=== PATIENT | female | born 1960 | race Two or more races ===

== ENCOUNTER 2017-07-12 10:01 | Outpatient (CLI) | payer BC, OTHER | END 2017-07-12 23:59 | disposition home or self-care (01) | LOC: US 10:01 | PROVIDERS: ATTEND Family Medicine | DX: E07.89 Other specified disorders of thyroid (principal) ==

== ENCOUNTER 2017-08-30 12:52 | Outpatient (CLI) | payer BC, OTHER | END 2017-08-30 23:59 | disposition home or self-care (01) | LOC: RAD 12:52 | PROVIDERS: ATTEND Family Medicine | DX: R76.11 Nonspecific reaction to tuberculin skin test without active tuberculosis (principal) | CPT/HCPCS: 71045 ==

== ENCOUNTER 2019-05-01 08:45 | Emergency (ER) | payer BC, OTHER ==
[~2019-05-01] VITALS: Ht 157.5 cm; Wt 77.1 kg
--- NOTE | 2019-05-01 08:50 | NUR ---
at bedside to examine patient.
[2019-05-01] MEDS ORDERED: KETOROLAC TROMETHAMINE 60 MG INJ IM ONE ×2 (09:00→09:09)
--- NOTE | 2019-05-01 09:32 | NUR ---
pt was d/c'd to home after dr Valdivia evaluation. d/c instructions given to the pt.
[2019-05-01 09:33] VITALS: BP 141/73
== END 2019-05-01 09:33 | disposition home or self-care (01) ==
LOC: ER 08:47
DX: G43.909 Migraine, unspecified, not intractable, without status migrainosus (principal)
CPT/HCPCS: 96372; 99283; J1885; A4663

== ENCOUNTER 2022-06-28 06:41 | Outpatient (CLI) | payer BC, OTHER ==
[2022-06-28 07:19] LABS: HEMATOCRIT 39.2 % (31.2-41.9); MEAN CORPUSCULAR HEMOGLOBIN 29.1 uug (24.7-32.8); MEAN CORPUSCULAR VOLUME 88.4 fL (75.5-95.3); PLATELET COUNT (AUTO) 398 K/uL (179-408)
[2022-06-28 08:31] LABS: IRON, SERUM 66 ug/dL (50-175)
[2022-06-28 08:38] LABS: ALANINE AMINOTRANSFERASE 28 U/L (14-59); ALKALINE PHOSPHATASE 210 U/L (50-136); ASPARTATE AMINOTRANSFERASE 27 U/L (15-37); BILIRUBIN,TOTAL 0.5 mg/dL (0.2-1.0); CARBON DIOXIDE 28 mmol/L (21-32); CHLORIDE 104 mmol/L (98-107); CREATININE 0.5 mg/dL (0.6-1.3); GLUCOSE 105 mg/dL (74-106); POTASSIUM 3.6 mmol/L (3.5-5.1); TOTAL PROTEIN, SERUM 7.8 g/dL (6.4-8.2); UREA NITROGEN, BLOOD 11 mg/dL (7-18)
[2022-06-28 09:14] LABS: *BILIRUBIN,URIN NEGATIVE (NEGATIVE); *CLARITY,URINE CLEAR (CLEAR); *COLOR,URINE YELLOW (YELLOW); *KETONES,URINE NEGATIVE (NEGATIVE); *UROBILINOGEN,URINE 0.2 E.U./dl (NORMAL); LEUKOCYTE ESTERASE ,URINE NEGATIVE (NEGATIVE); NITRITE, URINE NEGATIVE (NEGATIVE); PH,URINE 5.5 (5.0-8.0); UGLUCOSE NEGATIVE (NEGATIVE)
[2022-06-28 09:39] LABS: *BLOOD, URINE TRACE (NEGATIVE)
[2022-06-28 09:48] LABS: THYROID STIMULATING HORMONE < 0.007 mIU/mL (0.358-3.740)
[2022-06-28 11:23] LABS: BACTERIA,URINE NONE SEEN /HPF (NONE SEEN); RBC,URINE 0-3 /HPF (0-3); SQUAMOUS EPITHELIAL CELL,UR FEW /HPF (NONE SEEN); WBC,URINE 0-3 /HPF (0-3)
== END 2022-06-28 23:59 | disposition home or self-care (01) ==
LOC: LAB 06:41
PROVIDERS: ATTEND Legal Medicine
DX: Z00.00 Encounter for general adult medical examination without abnormal findings (principal); E11.9 Type 2 diabetes mellitus without complications; E78.00 Pure hypercholesterolemia, unspecified; R53.1 Weakness; E03.9 Hypothyroidism, unspecified; E55.9 Vitamin D deficiency, unspecified
CPT/HCPCS: 36415; 82746; 83550; 84443; 85025